=== PATIENT | male | born 1960 | race Two or more races ===

== ENCOUNTER 2025-01-14 21:24 | Emergency (ER) | payer OTHER ==
[~2025-01-14] VITALS: Ht 180.3 cm; Wt 95.3 kg
[2025-01-14] MEDS ORDERED: KETOROLAC TROMETHAMINE 60 MG VIAL IM ONE (22:15)
[2025-01-14] MEDS ORDERED: ACETAMINOPHEN 500 MG GEL..CAP PO ONE (22:15)
[2025-01-14] MEDS ORDERED: DEXAMETHASONE SODIUM PHOSPHATE 4 MG/ML VIAL IM ONE (22:30)
[2025-01-14 23:19] LABS: HEMATOCRIT 49.4 % (39.0-48.0); MEAN CELL VOLUME 89.8 fL (80.0-100.00); MEAN CORPUSCULAR HEMOGLOBIN 31.8 pg (27.00-32.0); MEAN CORPUSCULAR HGB CONC 35.4 g/dl (32.0-36.0); PLATELET COUNT 180 K/uL (150-450)
[2025-01-14 23:40] LABS: HEMOGLOBIN 17.5 g/dL (13-16.00)
[2025-01-14] MEDS ORDERED: BUTALB/ACETAMINOPHEN/CAFFEINE 1 TAB TABLET PO ONE (23:45)
[2025-01-14] MEDS ORDERED: TUSNEL LIQUID178 ML PO (23:59)
[2025-01-14] MEDS ORDERED: BUTALBIT-ACETA1 EACH PO (23:59)
[2025-01-14] MEDS ORDERED: ZITHROMAX500 MG PO (23:59)
== END 2025-01-15 00:24 | disposition home or self-care (01) ==
LOC: ER 21:27
PROVIDERS: General Practice
DX: B34.9 Viral infection, unspecified (principal); Z20.822 Contact with and (suspected) exposure to COVID-19